=== PATIENT | male | born 1980 | race Caucasian/White ===

== ENCOUNTER 2018-02-02 16:17 | Emergency (ER) | payer OTHER ==
[~2018-02-02] VITALS: Ht 177.8 cm; Wt 104.3 kg
[2018-02-02] MEDS ORDERED: SUBOXONE 8 MG-1 EACH SL (16:33)
[2018-02-02] MEDS ORDERED: NEURONTIN800 MG PO (16:33)
== END 2018-02-02 16:58 | disposition home or self-care (01) ==
LOC: ED 16:17
DX: G56.03 Carpal tunnel syndrome, bilateral upper limbs (principal); Z91.040 Latex allergy status

== ENCOUNTER 2019-10-29 16:13 | Inpatient (IN) | payer OTHER ==
[~2019-10-29] VITALS: Ht 177.8 cm; Wt 108.5 kg
[~2019-10-29 16:13] MED LIST: NEURONTIN800 MG PO; SUBOXONE 8 MG-1 EACH SL
[2019-10-29 16:39] VITALS: BP 126/78
[2019-10-29 17:00] LABS: BASO # 0.1 10*3/uL (0.0-0.1); BASO % 0.6 % (0.0-1.0); EOS # 0.2 10*3/uL (0.0-0.4); EOS % 1.9 % (1.0-4.0); HEMATOCRIT 40.4 % (42.0-52.0); LYMPH # 3.1 10*3/uL (1.3-4.4); LYMPH % 34.7 % (27.0-41.0); MEAN CORPUSCULAR HGB 28.1 pg (27.0-31.0); MEAN CORPUSCULAR HGB CONC 33.4 g/dl (33.0-37.0); MONO # 0.7 10*3/uL (0.1-1.0); MONO % 7.6 % (3.0-9.0); NEUT # 4.8 10*3/uL (2.3-7.9); NEUT % 55.1 % (47.0-73.0); PLATELET COUNT AUTOMATED 214 10*3/uL (130-400); RED BLOOD COUNT 4.81 10*6/uL (4.50-5.90); RED CELL DISTRI WIDTH 13.2 % (0-14.5); WHITE BLOOD COUNT 8.8 10*3/uL (4.8-10.8)
[2019-10-29 17:14] LABS: ALBUMIN 3.4 gm/dl (3.1-4.5); ALKALINE PHOSPHATASE 94 U/L (45-117); BUN 8 mg/dl (7-24); CHLORIDE 107 mmol/L (98-107); CREATININE 1.01 mg/dL (0.70-1.30); POTASSIUM 3.5 mmol/L (3.5-5.1); SGOT/AST 60 IU/L (3-35); SGPT/ALT 164 U/L (12-78); SODIUM 140 mmol/L (136-145); TOTAL PROTEIN 7.2 gm/dL (6.4-8.2)
[2019-10-29 17:15] LABS: ACETAMINOPHEN (TYLENOL) < 5.0 ug/ml (10-30); ETHYL ALCOHOL < 3.0 mg/dl (<3)
[2019-10-29 17:56] LABS: BILIRUBIN NEGATIVE (NEGATIVE); BLOOD NEGATIVE (NEGATIVE); CLARITY SL CLOUDY (CLEAR); COLOR YELLOW (YELLOW); GLUCOSE NEGATIVE (NEGATIVE); KETONE NEGATIVE (NEGATIVE); NITRITE NEGATIVE (NEGATIVE); UROBILINOGEN 0.2 E.U./dl (0.2-1.0)
[2019-10-29 17:57] LABS: LEUKO ESTERASE NEGATIVE (NEGATIVE); RBC 0-2 rbc/hpf (0-2)
[2019-10-29 18:04] LABS: URINE AMPHETAMINES > 1000 (1000ng/ml); URINE BARBITURATES < 200 (200ng/ml); URINE BENZODIAZEPINES > 200 (200ng/ml); URINE CANNABINOIDS (THC) > 50 (50ng/ml); URINE COCAINE < 300 (300ng/ml); URINE METHADONE < 300 (300ng/ml); URINE OPIATES > 300 (300ng/ml); URINE PHENCYCLIDINE < 25 (25ng/ml)
[2019-10-29 19:07] VITALS: BP 110/64
[2019-10-29 19:52] VITALS: BP 122/74
--- NOTE | 2019-10-29 19:52 | NUR ---
Time: 1952 A 39 year old MALE admitted to under services of RUYD SLAUGHTER DO. Pt. arrived via wheel chair from ER. Chief complaint: HERE FOR [facility]. MERE LOZADA
--- NOTE | 2019-10-29 20:00 | NUR ---
BELONGINGS TAKEN WITH SECURITY AT THIS TIME. PATIENT KEPT PHONE CHARGERS
--- NOTE | 2019-10-29 20:10 | NUR ---
PATIENT DENIES ANY HOME MEDICATIONS AT THIS TIME
--- NOTE | 2019-10-29 21:14 | NUR ---
NICOTINE GUM, VISTARIL, REQUIP, AND ROBAXIN GIVEN FOR C/O WITHDRAWAL SYMPTOMS. WILL MONITOR
--- NOTE | 2019-10-29 22:13 | NUR ---
MEDICATION EFFECTIVE PER PATIENT
[2019-10-30] VITALS: BP 111/66
[2019-10-30 07:10] LABS: ALKALINE PHOSPHATASE 81 U/L (45-117); BUN 8 mg/dl (7-24); CHLORIDE 108 mmol/L (98-107); CREATININE 0.68 mg/dL (0.70-1.30); POTASSIUM 3.7 mmol/L (3.5-5.1); SGOT/AST 70 IU/L (3-35); SGPT/ALT 164 U/L (12-78); SODIUM 140 mmol/L (136-145); TOTAL PROTEIN 6.4 gm/dL (6.4-8.2)
[2019-10-30 08:00] VITALS: BP 121/71
--- NOTE | 2019-10-30 08:40 | NUR ---
PATIENT MEETS [facility]ITER[facility]. [facility] STAFF WILL FOLLOW UP WITH PATIENT TO DISCUSS HIS [facility] PLAN. KIKO QUINTANA B.A. RIGGER HELPER
--- NOTE | 2019-10-30 09:36 | NUR ---
PT MEDICATED WITH PRN VISTARIL AND TYLENOL FOR C/O A HEADACHE AND INCREASED ANXIETY. WILL MONITOR.
--- NOTE | 2019-10-30 10:32 | NUR ---
PRN MEDS EFFECTIVE PER PT.
[2019-10-30 12:00] VITALS: BP 126/78
[2019-10-30 16:00] VITALS: BP 132/84
--- NOTE | 2019-10-30 16:21 | NUR ---
PATIENT IS GOING TO ON DEMAND FOR HIS AFTERCARE PLAN. PATIENT HAS AN APPOINTMENT ON SATURDAY, October AT 1PM. PATIENT AGREES AND UNDERSTANDS HIS AFTERCARE PLAN. PATIENT HAS TRANSPORTATION HOME POST DISCHARGE. KIKO QUINTANA B.A. INTAKE [id number]
--- NOTE | 2019-10-30 16:27 | NUR ---
PT MEDICATED WITH PRN TYLENOL FOR C/O A HEADACHE. WILL MONITOR.
--- NOTE | 2019-10-30 19:18 | NUR ---
PATIENT SITTING UP IN BED WITH NO NEEDS MADE. REMINDED TO NOT LEAVE FOOR, VERBALIZED UNDERSTANDING. BED IN LOWEST POSITION, CALL LIGHT IN REACH
[2019-10-30 20:00] VITALS: BP 123/66
--- NOTE | 2019-10-30 20:14 | NUR ---
MEDICATED WITH PRN TYLENOL FOR C/O HEADACHE RATED 5/10 ON A 0/10 PAIN SCALE. WILL MONITOR
--- NOTE | 2019-10-30 21:19 | NUR ---
MEDICATED WITH PRN VISTARIL FOR C/O ANXIOUSNESS. WILL MONITOR
--- NOTE | 2019-10-30 21:48 | NUR ---
VISTARIL EFFECTIVE PER PATIENT
[2019-10-31] VITALS: BP 111/49; BP 116/65
[2019-10-31 08:00] VITALS: BP 114/62
--- NOTE | 2019-10-31 08:50 | NUR ---
MEDICATED WITH PRN PO VISTARIL AND TYLENOL FOR ANXIETY AND GENERALIZED BODY PAIN.
--- NOTE | 2019-10-31 08:55 | NUR ---
MEDICATED WITH PRN PO REQUIP AND ROBAXIN FOR RESTLESS LEGS AND MUSCLE CRAMPING. ALSO ADMINISTERED SCHEDULED LIBRIUM FOR WITHDRAWAL SYMPTOMS.
--- NOTE | 2019-10-31 09:45 | NUR ---
Patient resting. Responding to scheduled and prn medications with fewer complaints of pain and anxiety.
[2019-10-31 12:00] VITALS: BP 111/49
--- NOTE | 2019-10-31 15:03 | NUR ---
MEDICATED WITH PRN PO ROBAXIN FOR CRAMPING MUSCLES
[2019-10-31 16:00] VITALS: BP 124/67
--- NOTE | 2019-10-31 16:00 | NUR ---
PRN PO ROBAXIN EFFECTIVE, PER PATIENT.
[2019-10-31 20:00] VITALS: BP 116/68
[2019-11-01 06:04] LABS: CREATININE 0.77 mg/dL (0.70-1.30)
[2019-11-01 06:06] LABS: BASO # 0.1 10*3/uL (0.0-0.1); BASO % 0.9 % (0.0-1.0); EOS # 0.2 10*3/uL (0.0-0.4); EOS % 3.8 % (1.0-4.0); HEMATOCRIT 40.2 % (42.0-52.0); LYMPH # 2.7 10*3/uL (1.3-4.4); LYMPH % 50.1 % (27.0-41.0); MEAN CELL VOLUME 86.6 fl (80.0-94.0); MEAN CORPUSCULAR HGB 27.8 pg (27.0-31.0); MEAN CORPUSCULAR HGB CONC 32.1 g/dl (33.0-37.0); MEAN PLATELET VOLUME 11.5 fl (9.6-12.3); MONO # 0.5 10*3/uL (0.1-1.0); MONO % 9.4 % (3.0-9.0); NEUT # 1.9 10*3/uL (2.3-7.9); NEUT % 35.6 % (47.0-73.0); PLATELET COUNT AUTOMATED 200 10*3/uL (130-400); RED BLOOD COUNT 4.64 10*6/uL (4.50-5.90); RED CELL DISTRI WIDTH 13.5 % (0-14.5); WHITE BLOOD COUNT 5.3 10*3/uL (4.8-10.8)
[2019-11-01 08:00] VITALS: BP 136/82
--- NOTE | 2019-11-01 10:55 | NUR ---
PT DISCHARGED HOME AT THIS TIME. FOLLOW UP CARE DISCUSSED.
== END 2019-11-01 10:55 | disposition home or self-care (01) | DRG 773 ==
LOC: ED 16:13 → 4E 19:01 → EDHOLD 19:01 → 4E 19:30
PROVIDERS: Hospitalist; Physician Assistant; ADMIT Emergency Medicine
DX: F11.23 Opioid dependence with withdrawal (principal); F12.23 Cannabis dependence with withdrawal; R74.0 Nonspecific elevation of levels of transaminase and lactic acid dehydrogenase [LDH]; F17.210 Nicotine dependence, cigarettes, uncomplicated; I10 Essential (primary) hypertension; E78.5 Hyperlipidemia, unspecified; G56.00 Carpal tunnel syndrome, unspecified upper limb; Z82.49 Family history of ischemic heart disease and other diseases of the circulatory system; Z71.6 Tobacco abuse counseling

== ENCOUNTER 2019-12-01 17:39 | Inpatient (IN) | payer OTHER ==
[~2019-12-01] VITALS: Ht 177.8 cm; Wt 107.6 kg
[2019-12-01 17:49] VITALS: BP 131/78
[2019-12-01 18:14] LABS: BASO # 0.1 10*3/uL (0.0-0.1); BASO % 0.4 % (0.0-1.0); EOS # 0.1 10*3/uL (0.0-0.4); EOS % 0.9 % (1.0-4.0); HEMATOCRIT 41.5 % (42.0-52.0); LYMPH # 1.3 10*3/uL (1.3-4.4); LYMPH % 9.9 % (27.0-41.0); MEAN CELL VOLUME 84.3 fl (80.0-94.0); MEAN CORPUSCULAR HGB 27.4 pg (27.0-31.0); MEAN CORPUSCULAR HGB CONC 32.5 g/dl (33.0-37.0); MONO # 0.9 10*3/uL (0.1-1.0); NEUT # 10.4 10*3/uL (2.3-7.9); NEUT % 81.4 % (47.0-73.0); PLATELET COUNT AUTOMATED 166 10*3/uL (130-400); RED BLOOD COUNT 4.92 10*6/uL (4.50-5.90); WHITE BLOOD COUNT 12.8 10*3/uL (4.8-10.8)
[2019-12-01 18:30] LABS: ALBUMIN 3.3 gm/dl (3.1-4.5); ALKALINE PHOSPHATASE 119 U/L (45-117); BUN 8 mg/dl (7-24); CHLORIDE 107 mmol/L (98-107); CREATININE 0.72 mg/dL (0.70-1.30); SGOT/AST 52 IU/L (3-35); SGPT/ALT 117 U/L (12-78); SODIUM 138 mmol/L (136-145); TOTAL PROTEIN 6.7 gm/dL (6.4-8.2)
[2019-12-01 18:33] LABS: BILIRUBIN NEGATIVE (NEGATIVE); BLOOD NEGATIVE (NEGATIVE); CLARITY CLEAR (CLEAR); COLOR YELLOW (YELLOW); GLUCOSE NEGATIVE (NEGATIVE); KETONE NEGATIVE (NEGATIVE); LEUKO ESTERASE NEGATIVE (NEGATIVE); NITRITE NEGATIVE (NEGATIVE); PH 8.5 (5.0-9.0); SPECIFIC GRAVITY 1.005 (1.005-1.030); UROBILINOGEN 0.2 E.U./dl (0.2-1.0)
[2019-12-01 18:35] LABS: ACETAMINOPHEN (TYLENOL) < 5.0 ug/ml (10-30); ETHYL ALCOHOL < 3.0 mg/dl (<3)
[2019-12-01 18:41] LABS: BACTERIA TRACE; EPITHELIAL CELLS 0-2; RBC 0-2 rbc/hpf (0-2); URINE AMPHETAMINES < 1000 (1000ng/ml); URINE BARBITURATES < 200 (200ng/ml); URINE BENZODIAZEPINES < 200 (200ng/ml); URINE CANNABINOIDS (THC) > 50 (50ng/ml); URINE COCAINE < 300 (300ng/ml); URINE METHADONE < 300 (300ng/ml); URINE OPIATES < 300 (300ng/ml); WBC 0-2 wbc/hpf (0-5)
[2019-12-01 18:42] LABS: URINE PHENCYCLIDINE < 25 (25ng/ml)
[2019-12-01 20:10] VITALS: BP 127/74
[2019-12-01 20:15] VITALS: BP 130/78
[2019-12-02] VITALS: BP 106/67
[2019-12-02 08:00] VITALS: BP 116/68
[2019-12-02 12:00] VITALS: BP 122/66
[2019-12-02 16:00] VITALS: BP 115/74
[2019-12-02 20:00] VITALS: BP 132/70
[2019-12-03] VITALS: BP 107/62
[2019-12-03 06:17] LABS: BASO % 0.6 % (0.0-1.0); EOS # 0.3 10*3/uL (0.0-0.4); EOS % 4.2 % (1.0-4.0); HEMATOCRIT 42.2 % (42.0-52.0); LYMPH # 2.7 10*3/uL (1.3-4.4); LYMPH % 44.1 % (27.0-41.0); MEAN CELL VOLUME 86.3 fl (80.0-94.0); MEAN CORPUSCULAR HGB CONC 32.5 g/dl (33.0-37.0); MEAN PLATELET VOLUME 11.4 fl (9.6-12.3); MONO # 0.6 10*3/uL (0.1-1.0); MONO % 9.2 % (3.0-9.0); NEUT # 2.6 10*3/uL (2.3-7.9); NEUT % 41.7 % (47.0-73.0); PLATELET COUNT AUTOMATED 169 10*3/uL (130-400); RED BLOOD COUNT 4.89 10*6/uL (4.50-5.90); RED CELL DISTRI WIDTH 13.2 % (0-14.5); WHITE BLOOD COUNT 6.2 10*3/uL (4.8-10.8)
[2019-12-03 06:38] LABS: ALBUMIN 2.9 gm/dl (3.1-4.5); ALKALINE PHOSPHATASE 108 U/L (45-117); BUN 10 mg/dl (7-24); CHLORIDE 106 mmol/L (98-107); CREATININE 0.84 mg/dL (0.70-1.30); POTASSIUM 4.2 mmol/L (3.5-5.1); SGOT/AST 52 IU/L (3-35); SGPT/ALT 126 U/L (12-78); SODIUM 140 mmol/L (136-145); TOTAL PROTEIN 6.3 gm/dL (6.4-8.2)
[2019-12-03 08:00] VITALS: BP 132/81
[2019-12-03 12:00] VITALS: BP 113/63
[2019-12-03 16:00] VITALS: BP 123/69
[2019-12-03 20:00] VITALS: BP 129/80
[2019-12-04] VITALS: BP 128/72
[2019-12-04 08:00] VITALS: BP 138/90
== END 2019-12-04 09:49 | disposition left against medical advice (07) | DRG 720 ==
LOC: ED 17:39 → 5E 18:34 → EDHOLD 18:34 → 5E 19:44
PROVIDERS: Nurse Practitioner Family; Student in an Organized Health Care Education/Training Program; ADMIT Internal Medicine
DX: A41.89 Other specified sepsis (principal); R74.0 Nonspecific elevation of levels of transaminase and lactic acid dehydrogenase [LDH]; D64.9 Anemia, unspecified; R73.9 Hyperglycemia, unspecified; F12.90 Cannabis use, unspecified, uncomplicated; E78.5 Hyperlipidemia, unspecified; E44.0 Moderate protein-calorie malnutrition; F11.23 Opioid dependence with withdrawal; Z53.29 Procedure and treatment not carried out because of patient's decision for other reasons; F19.230 Other psychoactive substance dependence with withdrawal, uncomplicated; F17.210 Nicotine dependence, cigarettes, uncomplicated; J45.909 Unspecified asthma, uncomplicated; I10 Essential (primary) hypertension; G56.00 Carpal tunnel syndrome, unspecified upper limb; Z71.6 Tobacco abuse counseling; Z82.49 Family history of ischemic heart disease and other diseases of the circulatory system; Z80.3 Family history of malignant neoplasm of breast; Z68.34 Body mass index [BMI] 34.0-34.9, adult

== ENCOUNTER 2019-12-10 21:53 | Emergency (ER) | payer OTHER ==
[~2019-12-10] VITALS: Ht 177.8 cm; Wt 106.6 kg
== END 2019-12-10 23:46 | disposition home or self-care (01) ==
LOC: ED 21:53
DX: Z00.01 Encounter for general adult medical examination with abnormal findings (principal); F17.200 Nicotine dependence, unspecified, uncomplicated

== ENCOUNTER 2024-02-20 23:45 | Emergency (ER) | payer OTHER ==
[~2024-02-20] VITALS: Ht 177.8 cm; Wt 102.1 kg
[2024-02-21] MEDS ORDERED: methylPREDNISolone sod succ 125 MG VIAL IM ONE (00:40)
[2024-02-21] MEDS ORDERED: PREDNISONE20 M1 PO (00:44)
== END 2024-02-21 01:17 | disposition home or self-care (01) ==
LOC: ED 23:45
DX: L23.7 Allergic contact dermatitis due to plants, except food (principal); F12.90 Cannabis use, unspecified, uncomplicated; F17.200 Nicotine dependence, unspecified, uncomplicated; F13.10 Sedative, hypnotic or anxiolytic abuse, uncomplicated; F19.10 Other psychoactive substance abuse, uncomplicated; Z98.890 Other specified postprocedural states

== ENCOUNTER 2024-10-28 20:01 | Emergency (ER) | payer OTHER ==
[~2024-10-28] VITALS: Ht 177.8 cm; Wt 97.5 kg
[~2024-10-28 20:01] MED LIST changes: +PREDNISONE20 M1 PO
[2024-10-28] MEDS ORDERED: SUBOXONE 8 MG-1 EACH BC (20:11)
[2024-10-28] MEDS ORDERED: STRATTERA10 MG PO (20:12)
[2024-10-28] MEDS ORDERED: NEURONTIN300 MG PO (20:12)
[2024-10-28] MEDS ORDERED: methylPREDNISolone sod succ 125 MG VIAL IM ONE (20:55)
== END 2024-10-28 21:36 | disposition home or self-care (01) ==
LOC: ED 20:01
DX: L23.7 Allergic contact dermatitis due to plants, except food (principal); Z79.899 Other long term (current) drug therapy; Z98.890 Other specified postprocedural states; Z87.891 Personal history of nicotine dependence